=== PATIENT | male | born 1985 | race Caucasian/White ===

== ENCOUNTER 2018-08-07 13:50 | Emergency (ER) | payer SELFPAY ==
[~2018-08-07] VITALS: Ht 170.2 cm; Wt 86.2 kg
[2018-08-07 14:14] VITALS: BP 129/75
[2018-08-07] MEDS ORDERED: LIDOCAINE 1% Multi-Dose 20 ML VIAL. ONE (14:30)
[2018-08-07] MEDS ORDERED: cefTRIAXone IM 1 GM VIAL IM ONE (15:30)
[2018-08-07] MEDS ORDERED: LIDOCAINE 1% Multi-Dose 20 ML VIAL. INJ ONE (15:30)
[2018-08-07] MEDS ORDERED: HYDR-3164 PO (15:31)
[2018-08-07] MEDS ORDERED: SULF1TAB24 PO (15:31)
--- NOTE | 2018-08-07 15:31 | PHYS DOC ---
Past Medical History Past Medical History: No Pertinent History (DEYVI HERNANDEZ APRN) Past Surgical History: No Surgical History (DEYVI HERNANDEZ APRN) Alcohol Use: Occasionally Drug Use: None (DEYVI HERNANDEZ APRN) Adult General Chief Complaint Chief Complaint: SKIN PROBLEM HPI HPI Patient is a 32 year old male who presents with a very large abscess to his left gluteal fold with cellulitis present. The patient states that this is been ongoing for 5 days. He states that it has worsened to the point that he can barely sit down. He states that nothing is helping with the pain. He has been using hot compresses. (DEYVI HERNANDEZ APRN) Review of Systems Review of Systems Constitutional: Denies fever or chills [] Respiratory: Denies cough or shortness of breath [] Cardiovascular: No additional information not addressed in HPI [] GI: Denies abdominal pain, nausea, vomiting, bloody stools or diarrhea [] : Denies dysuria or hematuria [] Musculoskeletal: Denies back pain or joint pain [] Integument: See history of present illness Neurologic: Denies headache, focal weakness or sensory changes [] Endocrine: Denies polyuria or polydipsia [] All other systems were reviewed and found to be within normal limits, except as documented in this note. (DEYVI HERNANDEZ APRN) Current Medications Current Medications Current Medications Medications (Trade) Dose Ordered Sig/Kimani Start Time Stop Time Status Last Admin Dose Admin Ceftriaxone Sodium (Rocephin Im) 1 gm 1X ONCE 08/07/18 15:30 08/07/18 15:31 DC 08/07/18 15:25 1 GM Lidocaine HCl (Lidocaine 1% 20ml Vial) 20 ml 1X ONCE 08/07/18 15:30 08/07/18 15:31 DC 08/07/18 15:26 20 ML (AIDA ALEGRIA MD) Allergies Allergies Allergies Coded Allergies Type Severity Reaction Last Updated Verified No Known Drug Allergies 08/07/18 No (AIDA ALEGRIA MD) Physical Exam Physical Exam Constitutional: Well developed, well nourished, no acute distress, non-toxic appearance. [] Cardiovascular:Heart rate regular rhythm, no murmur [] Lungs & Thorax: Bilateral breath sounds clear to auscultation [] Abdomen: Bowel sounds normal, soft, no tenderness, no masses, no pulsatile masses. [] Skin: 9 centimeter area of induration and a large fluctuant pool noted to the left gluteal fold Back: No tenderness, no CVA tenderness. [] Extremities: No tenderness, no cyanosis, no clubbing, ROM intact, no edema. [] Neurologic: Alert and oriented X 3, normal motor function, normal sensory function, no focal deficits noted. [] Psychologic: Affect normal, judgement normal, mood normal. [] Abscess Incision and Drainage with irrigation by me: Location: left Gluteal fold Anesthesia: Local 1% Lidocaine Technique: Irrigated. Disrupted loculations w/ instrumentation, at least 500 mL of purulent drainage was expressed Packing: None Complications: Neurovascularly intact post procedure 48 hour wound check. Scar minimization instructions given. (DEYVI HERNANDEZ APRN) Current Patient Data Vital Signs Vital Signs Date Time Temp Pulse Resp B/P (MAP) Pulse Ox O2 Delivery O2 Flow Rate FiO2 08/07/18 14:14 98.4 120 16 129/75 (93) 95 Room Air 98.4 (AIDA ALEGRIA MD) EKG EKG [] (DEYVI HERNANDEZ APRN) Radiology/Procedures Radiology/Procedures [] (DEYVI HERNANDEZ APRN) Course & Med Decision Making Course & Med Decision Making Pertinent Labs and Imaging studies reviewed. (See chart for details) [] (DEYVI HERNANDEZ APRN) Course & Med Decision Making Staff Physician Addendum: I was working in the ER during the course of this patient's visit. I was available for consultation as needed, but I was not directly involved in the care of this patient. (AIDA ALEGRIA MD) Dragon Disclaimer Dragon Disclaimer This electronic medical record was generated, in whole or in part, using a voice recognition dictation system. (DEYVI HERNANDEZ APRN) Departure Departure Impression: Primary Impression: Abscess Additional Impression: Cellulitis Disposition: 01 HOME, SELF-CARE Condition: STABLE Referrals: NO PCP (PCP) Patient Instructions: Abscess, Care After, Cellulitis Additional Instructions: Take medications as directed. Do not drive or operate heavy machinery while taking pain medication. Follow-up with your primary care provider in 3 days for recheck or return to the emergency department if worsening. Scripts Hydrocodone/Apap 5-325 (NORCO 5-325 TABLET) 1 Each Tablet 1 TAB PO PRN Q6HRS PRN for PAIN, #14 TAB 0 Refills Prov: DEYVI HERNANDEZ APRN 08/07/18 Sulfamethoxazole/Trimethoprim (BACTRIM DS TABLET) 1 Each Tablet 1 TAB PO BID for abscess, #20 TAB Prov: DEYVI HERNANDEZ APRN 08/07/18 Problem Qualifiers DEYVI HERNANDEZ APRN Aug 07, 2018 15:31 AIDA ALEGRIA MD Aug 08, 2018 10:22
== END 2018-08-07 15:55 | disposition home or self-care (01) ==
LOC: ER 13:50
DX: L02.31 Cutaneous abscess of buttock (principal); L03.317 Cellulitis of buttock
CPT/HCPCS: 10060; 96372; 99283; J0696; 99284